=== PATIENT | male | born 1980 | race Caucasian/White ===

== ENCOUNTER 2016-10-23 14:11 | Emergency (ER) | payer MEDICAID ==
[~2016-10-23] VITALS: Ht 182.9 cm; Wt 115.0 kg
[~2016-10-23 14:11] MED LIST: PROT40TA PO; ZOFR4TAB3 SL
[2016-10-23 14:13] VITALS: BP 133/86; PULSE 60; RESP 20; TEMP 98.2; O2SAT 98
[2016-10-23] MEDS ORDERED: PENI500T PO (14:39)
--- NOTE | 2016-10-23 14:40 | PD ---
HPI Chief Complaint: ENT Complaint Time Seen by Provider: 14:36 Travel History International Travel<30 days: No Contact w/Intl Traveler<30days: No Traveled to known affect area: No History of Present Illness HPI 36 showed male presents to the emergency department for evaluation of throat pain for one month. He states it hurts with swallowing and spitting. He denies any fevers or chills. Patient reports a history of chronic back pain, but takes no prescribed medications. He states he has taken [id number] anti-inflammatories as well as magic mouthwash without relief. Patient denies any other symptoms or complaints at this time. PFSH Past Medical History Arthritis: Yes (DJD L HIP??) Asthma: Yes ( CHILD--GREW OUT OF PER PT) Diminished Hearing: No Genitourinary: Yes Headaches: Yes (OCCASSIONAL) Musculoskeletal: Yes (BACK PAIN CHRONIC) Neurologic: Yes Immunizations Current: No Migraines: Yes (OCCASSIONAL) Renal Failure: No Seizures: Yes ( CHILD/NONE SINCE CHILD/TAKES NO MEDS) Past Surgical History Body Medical Devices: PEIRCED L EYEBROW/TONGUE Cardiac Surgery: Yes ( CHILD "WATER ON MY HEART") Ear Surgery: No Endocrine Surgery: No Eye Surgery: No Genitourinary Surgery: No Gynecologic Surgery: No Oral Surgery: No Other Surgery: Yes (BACK SURGERY) Social History Alcohol Use: No Tobacco Use: Yes Substance Use: No Allergies-Medications (Allergen,Severity, Reaction): Coded Allergies: Doxycycline (Verified Allergy, Severe, Anaphylaxis, 05/25/16) Septra (Verified Allergy, Severe, Anaphylaxis, 05/25/16) Reported Meds & Prescriptions Reported Meds & Active Scripts Active Zofran ODT (Ondansetron HCl) 4 Mg Tab 4 Mg SL Q6H PRN FOR NAUSEA/VOMITING Protonix (Pantoprazole Sodium) 40 Mg Tabdr 40 Mg PO DAILY Review of Systems Except as stated in HPI: all other systems reviewed are Neg Physical Exam Narrative GENERAL: Well-developed well-nourished male patient, ambulatory. Afebrile. SKIN: Warm and dry. HEAD: Normocephalic. Atraumatic. ENT: Mucosa pink and moist. No erythema or exudates. No uvular edema. No uvular , palatal, or tonsillar deviation. Airway patent. Nasal turbinates appear normal without nasal blood, purulent drainage or septal hematoma. Bilateral tympanic membranes are clear without erythema or perforation. EYES: No scleral icterus. No injection or drainage. NECK: Supple, trachea midline. No JVD or lymphadenopathy. CARDIOVASCULAR: Regular rate and rhythm without murmurs, gallops, or rubs. RESPIRATORY: Breath sounds equal bilaterally. No accessory muscle use. Lungs sounds clear to auscultation. MUSCULOSKELETAL: No cyanosis, or edema. Data Data Last Documented VS Vital Signs Date Time Temp Pulse Resp B/P Pulse Ox O2 Delivery O2 Flow Rate FiO2 10/23/16 14:13 98.2 60 20 133/86 98 Room Air MDM Medical Decision Making Medical Screen Exam Complete: Yes Emergency Medical Condition: Yes Medical Record Reviewed: Yes Differential Diagnosis Strep pharyngitis versus viral pharyngitis versus URI Narrative Course 36-year-old male presents to the emergency department for evaluation of sore throat for one month. He denies any other associated symptoms. He has not followed up outpatient for this issue. Physical exam is reassuring. I stressed to the patient the need to follow up with an ear, nose, and throat physician or a primary care physician. I'll try the patient a short prescription of antibiotics to see if this relieves his throat pain. However, he is to follow up regardless. He is to return for any acute worsening of symptoms. Diagnosis Primary Impression: Pharyngitis Qualified Code: J02.9 - Pharyngitis, unspecified etiology Referrals: Ear / Nose / Throat Specialist call for appointment Patient Instructions: General Instructions, Pharyngitis (ED) Departure Forms: Tests/Procedures, Work Release Enter return to work date: Oct 24, 2016 Additional Instructions: Take antibiotic as directed until gone. This is free at [facility]. Follow up with an ENT physician. Return to the emergency department for any acute, worsening of symptoms. Med/Other Pt SpecificInfo: Prescription(s) given Scripts Penicillin V Potassium 500 Mg [id number] Mg PO Q8H 10 Days Ref 0 Prov:Alexia Mcqueen 10/23/16 Disposition: 01 DISCHARGE HOME Condition: Stable Alexia Mcqueen Oct 23, 2016 14:40
== END 2016-10-23 14:55 | disposition home or self-care (01) ==
LOC: NEPB 14:11
DX: J02.9 Acute pharyngitis, unspecified (principal); Z72.0 Tobacco use
CPT/HCPCS: 99282

== ENCOUNTER 2017-01-21 15:19 | Emergency (ER) | payer MEDICAID ==
[~2017-01-21] VITALS: Ht 30.5 cm; Wt 127.9 kg
[~2017-01-21 15:19] MED LIST changes: +PENI500T PO
[2017-01-21 15:33] VITALS: BP 131/90; PULSE 72; RESP 16; TEMP 98.4; O2SAT 98
--- NOTE | 2017-01-21 16:05 | PD ---
HPI Chief Complaint: Skin Problem Time Seen by Provider: 16:05 Travel History International Travel<30 days: No Contact w/Intl Traveler<30days: No Traveled to known affect area: No History of Present Illness HPI 36-year-old male presents the ED for evaluation of 2 day history of red, painful area of the right thigh. Patient can identify no acute injury. He denies fever, chills, previous history of abscess or MRSA. He states that he attempted to squeeze the area yesterday and produced a small amount of pus and blood. Denies numbness, tingling, weakness, limitations to range of motion of the lower extremity. Endorses allergies to doxycycline and Septra. PFSH Past Medical History Arthritis: Yes (DJD L HIP??) Asthma: Yes ( CHILD--GREW OUT OF PER PT) Diminished Hearing: No Genitourinary: Yes Headaches: Yes (OCCASSIONAL) Musculoskeletal: Yes (BACK PAIN CHRONIC) Neurologic: Yes Immunizations Current: No Migraines: Yes (OCCASSIONAL) Renal Failure: No Seizures: Yes ( CHILD/NONE SINCE CHILD/TAKES NO MEDS) Influenza Vaccination: No Past Surgical History Body Medical Devices: PEIRCED L EYEBROW/TONGUE Cardiac Surgery: Yes ( CHILD "WATER ON MY HEART") Ear Surgery: No Endocrine Surgery: No Eye Surgery: No Genitourinary Surgery: No Gynecologic Surgery: No Oral Surgery: No Other Surgery: Yes (BACK SURGERY) Social History Alcohol Use: No Tobacco Use: Yes (1 ppd) Substance Use: No Allergies-Medications (Allergen,Severity, Reaction): Coded Allergies: Doxycycline (Verified Allergy, Severe, Anaphylaxis, 01/21/17) Septra (Verified Allergy, Severe, Anaphylaxis, 01/21/17) Reported Meds & Prescriptions Reported Meds & Active Scripts Active Ibuprofen 800 Mg Tab 800 Mg PO Q8H Clindamycin (Clindamycin HCl) 150 Mg Cap 450 Mg PO Q6H 10 Days Review of Systems Except as stated in HPI: all other systems reviewed are Neg Physical Exam Narrative GENERAL: Well-nourished, well-developed white male in no acute distress. SKIN: Focused skin assessment warm/dry. Multiple Tattoos. SKIN: There is an indurated area in the right anterior thigh which measures about 3 cm in diameter. It is fluctuant but there is no pointing or drainage. There is a zone of inflammation around it but no lymphangitis. HEAD: Normocephalic. EYES: No scleral icterus. No injection or drainage. NECK: Supple, trachea midline. No JVD or lymphadenopathy. CARDIOVASCULAR: Regular rate and rhythm without murmurs, gallops, or rubs. RESPIRATORY: Breath sounds equal bilaterally. No accessory muscle use. GASTROINTESTINAL: Abdomen soft, non-tender, nondistended. MUSCULOSKELETAL: No cyanosis, or edema. Patient is ambulatory, walks with normal gait. BACK: Nontender without obvious deformity. No CVA tenderness. Data Data Last Documented VS Vital Signs Date Time Temp Pulse Resp B/P Pulse Ox O2 Delivery O2 Flow Rate FiO2 01/21/17 15:33 98.4 72 16 131/90 98 Orders Abscess Culture And Gram Stain (01/21/17 16:12) Ibuprofen (Motrin) (01/21/17 16:15) Lidocai-Epi 1%-1:100,000 Inj (Xylocaine- (01/21/17 16:15) MDM Medical Decision Making Medical Screen Exam Complete: Yes Emergency Medical Condition: Yes Differential Diagnosis Folliculitis versus abscess versus cellulitis versus other Narrative Course 36-year-old male presents the ED for evaluation of 2 day history of red, painful area of the right thigh. Patient can identify no acute injury. He denies fever, chills, previous history of abscess or MRSA. He states that he attempted to squeeze the area yesterday and produced a small amount of pus and blood. Denies numbness, tingling, weakness, limitations to range of motion of the lower extremity. Vitals reviewed. Patient is afebrile on presentation. Physical exam reveals a nontoxic-appearing white male in no acute distress. There is an indurated area in the right anterior thigh which measures about 3 cm in diameter. It is fluctuant but there is no pointing or drainage. There is a zone of inflammation around it but no lymphangitis. Abscess I&D was performed. Please see my procedure note for details. Patient was prescribed clindamycin 450 4 times a day 10 days. Is also provided a short course of anti -inflammatories. He is instructed to return in 48 hours for removal of packing and reevaluation of the wound. He indicated understanding of the instructions and is agreeable to the care plan. He is stable and discharged home. Procedures Procedure Narrative INCISION AND DRAINAGE OF ABSCESS: The area was prepped and was sterilely draped. A subcutaneous wheal of 1 % Xylocaine with epinephrine with a total number 3 mL was used to anesthetize the area properly. A number 11 scalpel was used to make a 1.25-cm incision across the area of the abscess. The abscess was drained, complex loculations were broken down, and irrigated with normal saline. Cultures were obtained. Quarter inch iodoform packing was placed in the wound. Sterile dressing applied. Patient advised to have packing removed in two days. Diagnosis Primary Impression: Abscess of right thigh Referrals: Primary Care Physician Patient Instructions: Abscess Incision and Drainage (ED), General Instructions Additional Instructions: Rest, hydrate. Do not change the dressing unless it becomes saturated or wet. Take the antibiotics as they are prescribed, even if your symptoms resolve. 800 mg ibuprofen up to 3 times a day to reduce pain and inflammation. Return to the ED in 48 hours for wound recheck and packing removal. Return to the ED for any urgent or emergent medical condition. Med/Other Pt SpecificInfo: Prescription(s) given Scripts Ibuprofen 800 Mg [id number] Mg PO Q8H #15 TAB Ref 0 Prov:Girma Kramer MD 01/21/17 Clindamycin 150 Mg [id number] Mg PO Q6H 10 Days Ref 0 Prov:Girma Kramer MD 01/21/17 Disposition: 01 DISCHARGE HOME Condition: Stable Shelbi Urban Jan 21, 2017 16:05
[2017-01-21] MEDS ORDERED: IBUPROFEN 800 MG TAB PO ONE (16:15)
[2017-01-21] MEDS ORDERED: LIDOCAINE 1%/EPINEPHrine 1:100,000 SOLN 20 ML VIAL INFIL ONE (16:15)
[2017-01-21] MEDS ORDERED: IBUP800T23 PO (16:53)
[2017-01-21] MEDS ORDERED: CLIN1CAP5 PO (16:53)
[2017-01-21] MEDS ORDERED: HYDR-3533 PO (22:29)
== END 2017-01-21 17:23 | disposition home or self-care (01) ==
LOC: PHEFT 15:19
DX: L02.415 Cutaneous abscess of right lower limb (principal); F17.210 Nicotine dependence, cigarettes, uncomplicated; B95.62 Methicillin resistant Staphylococcus aureus infection as the cause of diseases classified elsewhere
CPT/HCPCS: 10061; 86403; 87070; 87186; 87205

== ENCOUNTER 2017-01-21 21:58 | Emergency (ER) | payer MEDICAID ==
[~2017-01-21] VITALS: Ht 182.9 cm; Wt 120.0 kg
[~2017-01-21 21:58] MED LIST changes: +CLIN1CAP5 PO; +IBUP800T23 PO
[2017-01-21 22:00] VITALS: BP 133/92; PULSE 52; RESP 15; TEMP 98.7; O2SAT 100
[2017-01-21] MEDS ORDERED: HYDR-3533 PO (22:29)
[2017-01-21] MEDS ORDERED: ACETAMINOPHEN/HYDROcodone 325 MG/5 MG TAB PO ONE (22:30)
--- NOTE | 2017-01-21 22:38 | PD ---
HPI Chief Complaint: Pain: Acute or Chronic Time Seen by Provider: 22:34 Travel History International Travel<30 days: No Contact w/Intl Traveler<30days: No Traveled to known affect area: No History of Present Illness HPI 36-year-old white male presents to emergency Department with complaints of pain after having an I&D done earlier today at [facility]. The patient states that he was prescribed Motrin which has not been improving his pain. He presents for stronger pain medication. PFSH Past Medical History Arthritis: Yes (DJD L HIP??) Asthma: Yes ( CHILD--GREW OUT OF PER PT) Diminished Hearing: No Genitourinary: Yes Headaches: Yes (OCCASSIONAL) Musculoskeletal: Yes (BACK PAIN CHRONIC) Neurologic: Yes Immunizations Current: No Migraines: Yes (OCCASSIONAL) Renal Failure: No Seizures: Yes ( CHILD/NONE SINCE CHILD/TAKES NO MEDS) Past Surgical History Body Medical Devices: PEIRCED L EYEBROW/TONGUE Cardiac Surgery: Yes ( CHILD "WATER ON MY HEART") Ear Surgery: No Endocrine Surgery: No Eye Surgery: No Genitourinary Surgery: No Gynecologic Surgery: No Oral Surgery: No Other Surgery: Yes (BACK SURGERY) Social History Alcohol Use: No Tobacco Use: Yes (1 ppd) Substance Use: No Allergies-Medications (Allergen,Severity, Reaction): Coded Allergies: Doxycycline (Verified Allergy, Severe, Anaphylaxis, 01/21/17) Septra (Verified Allergy, Severe, Anaphylaxis, 01/21/17) Reported Meds & Prescriptions Reported Meds & Active Scripts Active Lortab (Hydrocodone-Acetaminophen) 5-325 Mg Tab 1 Tab PO Q8HR PRN Ibuprofen 800 Mg Tab 800 Mg PO Q8H Clindamycin (Clindamycin HCl) 150 Mg Cap 450 Mg PO Q6H 10 Days Review of Systems Except as stated in HPI: all other systems reviewed are Neg Physical Exam Narrative GENERAL: This is a well-nourished, well-developed patient, in no apparent distress. SKIN: Patient has a abscess to the right proximal inner thigh. There is packing in place. There is no fluctuance or pointing. No discharge. There is some mild surrounding erythema. Tender to touch. HEAD: Atraumatic. Normocephalic. EYES: PERRL, EOMI, no discharge or injection. No scleral icterus. EARS: Clear NOSE: Nasal turbinates appear normal. THROAT: Mucosa pink and moist. Airway patent. NECK: Trachea midline. supple, moves head freely. LUNGS: Clear to auscultation. CV: Regular in rhythm. ABDOMEN: Soft nontender. EXT: No clubbing cyanosis or edema. Data Data Last Documented VS Vital Signs Date Time Temp Pulse Resp B/P Pulse Ox O2 Delivery O2 Flow Rate FiO2 01/21/17 22:00 98.7 52 15 133/92 100 Room Air Orders Acetamin-Hydrocod 325-5 Mg ([place] 5-325 (01/21/17 22:30) MDM Medical Decision Making Medical Screen Exam Complete: Yes Emergency Medical Condition: Yes Medical Record Reviewed: Yes Differential Diagnosis MDM: High Differential diagnoses: Abscess, folliculitis, cellulitis, lymphangitis, abrasion, contact dermatitis Narrative Course Patient is given one Lortab 5 a grams by mouth. This is right thigh abscess Diagnosis Primary Impression: Abscess of right thigh Patient Instructions: Narcotic given in the ED, General Instructions Additional Instructions: Rest. Elevation. keep clean and dry. remove the packing in two days. Daily wound care with soap, water and Neosporin. Continue your antibiotics. Continue Motrin. Lortab for additional pain. Follow-up with a primary care doctor in one week. Return to the ER for any problems. Med/Other Pt SpecificInfo: Prescription(s) given Scripts Hydrocodone-Acetaminophen (Lortab)5-325 Mg Tab1 Tab PO Q8HR PRN (PAIN) #12 TAB Prov:Kashif Son MD 01/21/17 Disposition: 01 DISCHARGE HOME Condition: Stable Kwame Gracia Jan 21, 2017 22:38
== END 2017-01-21 23:18 | disposition home or self-care (01) ==
LOC: NEPK 21:58
DX: L02.415 Cutaneous abscess of right lower limb (principal)
CPT/HCPCS: 99283

== ENCOUNTER 2017-01-23 10:43 | Emergency (ER) | payer MEDICAID ==
[~2017-01-23] VITALS: Ht 182.9 cm; Wt 120.0 kg
[~2017-01-23 10:43] MED LIST changes: +HYDR-3533 PO; -PENI500T PO; -PROT40TA PO; -ZOFR4TAB3 SL
[2017-01-23 10:44] VITALS: BP 137/86; PULSE 60; RESP 20; TEMP 98.5; O2SAT 99
--- NOTE | 2017-01-23 11:30 | PD ---
Physical Exam Date Seen by Provider: Jan 23, 2017 Time Seen by Provider: 11:28 Narrative 36 year old male presents to the emergency department for re-evaluation of an abscess to his right leg. Patient states he is taking antibiotics but symptoms are worsening. Vital Signs Reviewed. Patient awaiting bed placement. Data Data Last Documented VS Vital Signs Date Time Temp Pulse Resp B/P Pulse Ox O2 Delivery O2 Flow Rate FiO2 01/23/17 10:44 98.5 60 20 137/86 99 Room Air [facility] Supervised Visit with RAVIN: Alexia Funk Jan 23, 2017 11:30
[2017-01-23] MEDS ORDERED: SODIUM CHLOR 0.9% 1000 ML INJ 1,000 ML IV SCH (11:50)
--- NOTE | 2017-01-23 11:58 | PD ---
HPI Chief Complaint: Skin Problem Time Seen by Provider: 11:54 Travel History International Travel<30 days: No Contact w/Intl Traveler<30days: No Traveled to known affect area: No History of Present Illness HPI 36-year-old male presents to the emergency department for evaluation of worsening redness and pain in the right thigh. Patient was seen here 2 days ago for an abscess to the right upper thigh. He had an I&D performed at that time with packing placed and was placed on clindamycin. Patient states that he started taking the clindamycin yesterday morning and has been taking it as prescribed. States that he's had a worsening area of surrounding redness and pain on the right upper medial thigh. States that the size of the redness has tripled over the last 3 days. He denies fever but complains of chills. Complains of nausea but denies vomiting. Denies body aches, discharge or drainage. No other complaints. PFSH Past Medical History Arthritis: Yes (DJD L HIP??) Asthma: Yes ( CHILD--GREW OUT OF PER PT) Diminished Hearing: No Genitourinary: Yes Headaches: Yes (OCCASSIONAL) Neurologic: Yes Immunizations Current: No Migraines: Yes (OCCASSIONAL) Renal Failure: No Seizures: Yes ( CHILD/NONE SINCE CHILD/TAKES NO MEDS) Past Surgical History Body Medical Devices: PEIRCED L EYEBROW/TONGUE Cardiac Surgery: Yes ( CHILD "WATER ON MY HEART") Ear Surgery: No Endocrine Surgery: No Eye Surgery: No Genitourinary Surgery: No Gynecologic Surgery: No Oral Surgery: No Other Surgery: Yes (BACK SURGERY) Social History Alcohol Use: No Tobacco Use: Yes (1 ppd) Substance Use: No Allergies-Medications (Allergen,Severity, Reaction): Coded Allergies: Doxycycline (Verified Allergy, Severe, Anaphylaxis, 01/23/17) Septra (Verified Allergy, Severe, Anaphylaxis, 01/23/17) Reported Meds & Prescriptions Reported Meds & Active Scripts Active Lortab (Hydrocodone-Acetaminophen) 5-325 Mg Tab 1 Tab PO Q8HR PRN Ibuprofen 800 Mg Tab 800 Mg PO Q8H Clindamycin (Clindamycin HCl) 150 Mg Cap 450 Mg PO Q6H 10 Days Review of Systems Except as stated in HPI: all other systems reviewed are Neg Physical Exam Narrative GENERAL: Well-nourished and well-developed pleasant patient in moderate amount of pain but no acute distress. SKIN: Warm and dry. Right upper anterior thigh with open incision and packing in place with large surrounding area of erythema, warmth and tenderness approximately 13 cm in diameter. No area of induration or fluctuance. No lymphangitis. HEAD: Normocephalic and atraumatic. EYES: No injection, drainage, or hyphema noted. PERRLA. EOMI. ENT: No nasal drainage noted. Oropharynx is clear. NECK: Supple and the trachea is midline. CARDIOVASCULAR: Regular rate and rhythm. RESPIRATORY: Breath sounds are equal bilaterally with no accessory muscle use, wheezing, rhonchi, or crackles. GASTROINTESTINAL: Abdomen is soft, non-tender, and nondistended. MUSCULOSKELETAL: No obvious deformities, swelling, cyanosis, or ecchymosis is present throughout the upper and lower extremities. Patient has full range of motion without any signs of neurovascular compromise. NEUROLOGICAL: Awake, alert, and oriented. Normal speech and gait. Cranial nerves are grossly intact. Data Data Last Documented VS Vital Signs Date Time Temp Pulse Resp B/P Pulse Ox O2 Delivery O2 Flow Rate FiO2 01/23/17 11:41 61 20 01/23/17 10:44 98.5 137/86 99 Room Air Orders Complete Blood Count With Diff (01/23/17 11:50) Comprehensive Metabolic Panel (01/23/17 11:50) Lactic Acid Sepsis Protocol (01/23/17 11:50) Ecg Monitoring (01/23/17 11:50) Iv Access Insert/Monitor (01/23/17 11:50) Oximetry (01/23/17 11:50) Morphine Inj (Morphine Inj) (01/23/17 12:00) Ondansetron Inj (Zofran Inj) (01/23/17 12:00) Sodium Chlor 0.9% 1000 Ml Inj (Ns 1000 M (01/23/17 11:50) Sodium Chloride 0.9% Flush (Ns Flush) (01/23/17 12:00) Westergren Sedimentation Rate (01/23/17 11:50) C-Reactive Protein (Crp) (01/23/17 11:50) Clindamycin Inj (Cleocin Inj) (01/23/17 12:00) Ketorolac Inj (Toradol Inj) (01/23/17 13:00) Labs Laboratory Tests Test 01/23/17 11:55 White Blood Count 7.3 TH/MM3 Red Blood Count 5.13 MIL/MM3 Hemoglobin 15.8 GM/DL Hematocrit 45.5 % Mean Corpuscular Volume 88.8 FL Mean Corpuscular Hemoglobin 30.8 PG Mean Corpuscular Hemoglobin 34.6 % Concent Red Cell Distribution Width 13.3 % Platelet Count 258 TH/MM3 Mean Platelet Volume 9.1 FL Neutrophils (%) (Auto) 68.7 % Lymphocytes (%) (Auto) 18.8 % Monocytes (%) (Auto) 8.4 % Eosinophils (%) (Auto) 3.0 % Basophils (%) (Auto) 1.1 % Neutrophils # (Auto) 5.0 TH/MM3 Lymphocytes # (Auto) 1.4 TH/MM3 Monocytes # (Auto) 0.6 TH/MM3 Eosinophils # (Auto) 0.2 TH/MM3 Basophils # (Auto) 0.1 TH/MM3 CBC Comment DIFF FINAL Differential Comment Erythrocyte Sedimentation Rate 7 mm/hr Sodium Level 139 MEQ/L Potassium Level 4.3 MEQ/L Chloride Level 107 MEQ/L Carbon Dioxide Level 27.1 MEQ/L Anion Gap 5 MEQ/L Blood Urea Nitrogen 9 MG/DL Creatinine 0.91 MG/DL Estimat Glomerular Filtration 94 ML/MIN Rate Random Glucose 92 MG/DL Lactic Acid Level 1.4 mmol/L Calcium Level 8.5 MG/DL Total Bilirubin 0.6 MG/DL Aspartate Amino Transf 17 U/L (AST/SGOT) Alanine Aminotransferase 35 U/L (ALT/SGPT) Alkaline Phosphatase 76 U/L C-Reactive Protein 1.50 MG/DL Total Protein 7.0 GM/DL Albumin 3.5 GM/DL [facility] Medical Decision Making Medical Screen Exam Complete: Yes Emergency Medical Condition: Yes Differential Diagnosis Cellulitis versus abscess versus failed outpatient therapy versus sepsis Narrative Course 36-year-old male presents to the emergency department for evaluation of worsening right thigh redness and pain. Patient is afebrile, vital signs are stable. He had an I&D of an abscess performed 2 days ago and has been taking antibiotics since yesterday morning. His symptoms have continued to worsen despite antibiotic therapy. I did look at the EMR which shows his wound culture was positive for MRSA and that it is susceptible to clindamycin. IV access is obtained, labs drawn and sent. Patient is placed on cardiac telemetry and pulse oximetry monitoring. Patient is administered morphine 4 mg IV, Zofran 4 mg IV, IV fluids and clindamycin 600 mg IV. CBC is unremarkable. Sedimentation rate is within normal limits. CMP is unremarkable. CRP is slightly elevated at 1.5. Lactic acid is within normal limits at 1.4. Patient has remained stable and without complaint while here in the emergency department. The patient's labs are reassuring and his wound culture shows susceptible to clindamycin. He is only been on the antibiotic for one full day. I think it would be appropriate for the patient to continue to take antibiotics as an outpatient at this time and return for worsening of symptoms. I did use skin marker to outline the area of redness and he is given strict instructions to return if the redness extends outside of this line. I discussed all this with the patient was comfortable with this plan. I discussed the case with my attending physician Dr. Kramer who is aware of the patients history, physical examination findings, and treatment plan. Diagnosis Primary Impression: Cellulitis of right thigh Additional Impression: Abscess of right thigh Referrals: Primary Care Physician Patient Instructions: Abscess (ED), Cellulitis (ED), General Instructions Additional Instructions: Continue taking antibiotics as prescribed. Do not take Lortab with alcohol or while driving. Follow-up with your Primary Care Physician. Return to the ED for any acute worsening of symptoms such as worsening redness outside the skin markers, fever, worsening pain. Med/Other Pt SpecificInfo: Prescription(s) given Scripts Hydrocodone-Acetaminophen (Lortab)5-325 Mg Tab1 Tab PO Q6H PRN (PAIN GREATER THAN 6) #12 TAB Ref 0 Prov:Girma Kramer MD 01/23/17 Disposition: 01 DISCHARGE HOME Condition: Stable Hannah Dawn Jan 23, 2017 11:58
[2017-01-23] MEDS ORDERED: SODIUM CHLORIDE 0.9% FLUSH 10 ML FLUSH IV FLUSH PRN (12:00)
[2017-01-23] MEDS ORDERED: CLINDAMYCIN INJ 600 MG in SODIUM CHLORIDE 0.9% INJ 100 ML IV ONE (12:00)
[2017-01-23] MEDS ORDERED: ONDANSETRON HCL 4 MG/2 ML VIAL IVP ONE (12:00)
[2017-01-23] MEDS ORDERED: MORPHINE SULFATE 4 MG/ML INJ IV PUSH ONE (12:00)
[2017-01-23 12:09] LABS: BASOPHIL # 0.1 TH/MM3 (0-0.2); BASOPHIL % 1.1 % (0.0-2.0); EOSINOPHIL # 0.2 TH/MM3 (0-0.4); HEMATOCRIT 45.5 % (39.0-51.0); HEMO FLAGS DIFF FINAL; LYMPH % 18.8 % (9.0-44.0); LYMPHOCYTE # 1.4 TH/MM3 (1.0-4.8); MEAN CELL VOLUME 88.8 FL (80.0-100.0); MEAN CORPUSCULAR HEMOGLOBIN 30.8 PG (27.0-34.0); MEAN CORPUSCULAR HGB CONC 34.6 % (32.0-36.0); MONO % 8.4 % (0.0-8.0); NEUT % 68.7 % (16.0-70.0); PLATELET COUNT 258 TH/MM3 (150-450); RED BLOOD COUNT 5.13 MIL/MM3 (4.50-5.90); RED CELL DISTRIBUTION WIDTH 13.3 % (11.6-17.2); WHITE BLOOD COUNT 7.3 TH/MM3 (4.0-11.0)
[2017-01-23 12:31] LABS: ANION GAP 5 MEQ/L (5-15); AST (GOT) 17 U/L (15-37); BICARBONATE 27.1 MEQ/L (21.0-32.0); BLOOD UREA NITROGEN 9 MG/DL (7-18); CHLORIDE 107 MEQ/L (98-107); GLOMERULAR FILTRATION RATE 94 ML/MIN (>89); POTASSIUM 4.3 MEQ/L (3.5-5.1); SODIUM (NA) 139 MEQ/L (136-145)
[2017-01-23 12:35] LABS: ALKALINE PHOSPHATASE 76 U/L (45-117); ALT (GPT) 35 U/L (12-78); TOTAL BILIRUBIN ADULT 0.6 MG/DL (0.2-1.0)
[2017-01-23] MEDS ORDERED: HYDR-3533 PO (12:52)
[2017-01-23] MEDS ORDERED: KETOROLAC TROMETHAMINE 30 MG/ML (IVP) VIAL IV PUSH ONE (13:00)
[2017-01-23 13:07] VITALS: O2SAT 96
[2017-01-23 14:01] VITALS: RESP 18
== END 2017-01-23 14:03 | disposition home or self-care (01) ==
LOC: NEPE 10:43
DX: L03.115 Cellulitis of right lower limb (principal); L02.415 Cutaneous abscess of right lower limb; R11.0 Nausea; F17.210 Nicotine dependence, cigarettes, uncomplicated
CPT/HCPCS: 80053; 83605; 85025; 85652; 86140; 96365; 96375; 99284; J1885; J2270; J2405; J7030

== ENCOUNTER 2017-04-21 19:55 | Emergency (ER) | payer MEDICAID ==
[2017-04-21 20:05] VITALS: BP 154/107; PULSE 53; RESP 20; TEMP 98.7; O2SAT 100
[2017-04-21] MEDS ORDERED: LIDOCAINE HCL 1% PF 30 ML VIAL INFIL ONE (20:30)
--- NOTE | 2017-04-21 20:54 | PD ---
HPI Chief Complaint: Skin Problem Time Seen by Provider: 20:20 Travel History International Travel<30 days: No Contact w/Intl Traveler<30days: No Traveled to known affect area: No History of Present Illness HPI 37-year-old male presents to the emergency room for evaluation of a foreign body to his left fourth finger that occurred earlier today. Patient was cutting a large palm tree when a branch started falling towards his face. He put up his hand to protect his face 2 spikes stuck into his hand. He was able to remove 1 but the finger foreign body was too deep. He tried to go on about his day but the other foreign body in his left fourth finger was too painful. Unknown last tetanus. No chronic medical conditions or daily medications. PFSH Past Medical History Arthritis: Yes (DJD L HIP??) Asthma: Yes ( CHILD--GREW OUT OF PER PT) Diminished Hearing: No Genitourinary: Yes Headaches: Yes (OCCASSIONAL) Neurologic: Yes Immunizations Current: No Migraines: Yes (OCCASSIONAL) Renal Failure: No Seizures: Yes ( CHILD/NONE SINCE CHILD/TAKES NO MEDS) Past Surgical History Body Medical Devices: PEIRCED L EYEBROW/TONGUE Cardiac Surgery: Yes ( CHILD "WATER ON MY HEART") Ear Surgery: No Endocrine Surgery: No Eye Surgery: No Genitourinary Surgery: No Gynecologic Surgery: No Oral Surgery: No Other Surgery: Yes (BACK SURGERY) Social History Alcohol Use: No Tobacco Use: Yes (1 ppd) Substance Use: No Allergies-Medications (Allergen,Severity, Reaction): Coded Allergies: Doxycycline (Verified Allergy, Severe, Anaphylaxis, 04/21/17) Septra (Verified Allergy, Severe, Anaphylaxis, 04/21/17) *MDRO Multi-Drug Resistant Organism (Verified Adverse Reaction, Unknown, ) MRSA (thigh)-01/21/17 Reported Meds & Prescriptions Reported Meds & Active Scripts Active No Active Prescriptions or Reported Medications Review of Systems Except as stated in HPI: all other systems reviewed are Neg Physical Exam Narrative GENERAL: Well-nourished, well-developed male in no acute distress. Afebrile. Ambulatory. SKIN: Focused skin assessment warm/dry. There is a puncture wound at the tip of the left fourth finger with a black foreign body. HEAD: Normocephalic. EYES: No scleral icterus. No injection or drainage. NECK: Supple, trachea midline. No JVD or lymphadenopathy. CARDIOVASCULAR: Regular rate and rhythm without murmurs, gallops, or rubs. RESPIRATORY: Breath sounds equal bilaterally. No accessory muscle use. PSYCHIATRIC: No delusional thought processes. No hallucinations. Data Data Last Documented VS Vital Signs Date Time Temp Pulse Resp B/P Pulse Ox O2 Delivery O2 Flow Rate FiO2 04/21/17 20:05 98.7 53 20 154/107 100 Orders Lidocaine Pf 1% Inj (Xylocaine-Mpf 1% In (04/21/17 20:30) MDM Medical Decision Making Medical Screen Exam Complete: Yes Emergency Medical Condition: Yes Medical Record Reviewed: Yes Differential Diagnosis Soft tissue foreign body, abrasion, laceration, contusion Narrative Course 37-year-old male presents to the emergency room for evaluation of foreign body to the left fourth finger that occurred earlier today. Patient was trying to "tough it out" but states it is too painful. Physical exam reveals a puncture wound to the tip of the left fourth finger with a black body. A 1 cm foreign body was removed without difficulty. Patient discharged with wound care instructions and told to follow up with a primary care physician or return for worsening symptoms. Procedures Procedure Narrative Foreign body removal: The area was prepped with Betadine. A subcutaneous wheal of 1% lidocaine with a total number 2 mL was used to anesthetize the area properly. A number 11 scalpel was used to make a 0.5 cm incision across the foreign body. Foreign body was removed with forceps without difficulty. Sterile dressing applied. Diagnosis Primary Impression: Soft tissues foreign body Referrals: Primary Care Physician Patient Instructions: General Instructions, Soft Tissue Foreign Body (ED) Additional Instructions: Rest and drink plenty of fluids. Keep wound clean and dry. Apply triple antibiotic ointment daily. Take ibuprofen with food as directed, as needed for pain. Follow-up with a primary care physician. Return to the emergency room for worsening symptoms. Med/Other Pt SpecificInfo: Prescription(s) given Scripts No Active Prescriptions or Reported Meds Disposition: 01 DISCHARGE HOME Condition: Stable Citlali Mueller Apr 21, 2017 20:54
== END 2017-04-21 21:00 | disposition home or self-care (01) ==
LOC: PHEFT 19:55
DX: S61.245A Puncture wound with foreign body of left ring finger without damage to nail, initial encounter (principal); F17.210 Nicotine dependence, cigarettes, uncomplicated; W20.8XXA Other cause of strike by thrown, projected or falling object, initial encounter; Y93.H2 Activity, gardening and landscaping
CPT/HCPCS: 10120

== ENCOUNTER 2017-09-22 21:12 | Emergency (ER) | payer MEDICAID ==
[~2017-09-22] VITALS: Ht 182.9 cm; Wt 121.8 kg
[2017-09-22 21:17] VITALS: BP 152/94; PULSE 55; RESP 20; TEMP 97.9; O2SAT 99
[2017-09-22] MEDS ORDERED: KETOROLAC TROMETHAMINE 60 MG/2 ML (IM) VIAL IM ONE (21:30)
[2017-09-22 21:42] LABS: BLOOD, URINE NEG (NEG); GLUCOSE,URINE NEG (NEG); KETONE, URINE NEG (NEG); NITRITE,URINE NEG (NEG)
[2017-09-22 21:49] LABS: URINE COLOR YELLOW (YELLW/STRAW)
[2017-09-22 21:50] LABS: COMMENT (UR) CULT NOT INDICATED; CULTURE IF INDICATED CULT NOT INDICATED; SQUAMOUS EPITHELIAL CELL URINE 0-5 /hpf (0-5); WBC, URINE 0-2 /hpf (0-5)
--- NOTE | 2017-09-22 21:53 | PD ---
HPI Chief Complaint: Complaint Time Seen by Provider: 21:25 Travel History International Travel<30 days: No Contact w/Intl Traveler<30days: No Traveled to known affect area: No History of Present Illness HPI 37-year-old male with history of left scrotal injury as a child needing stitches presents the emergency department for evaluation of left testicular pain for the past few days. Patient states she is also feeling the urge to urinate. States he Also started turning red and swollen. Endorse some mild abdominal cramping but no nausea no vomiting no diarrhea. He states that his girlfriend had been diagnosed with VRE and doesn't know if this has something to do with it. Denies any history of discharge. States the symptoms a never happened to him before. States the pain is moderate, left testicle, no radiation, associated signs symptoms as above, context as above. PFSH Past Medical History Arthritis: Yes (DJD L HIP??) Asthma: Yes ( CHILD--GREW OUT OF PER PT) Autoimmune Disease: No Diminished Hearing: No Genitourinary: Yes Headaches: Yes (OCCASSIONAL) Neurologic: Yes Immunizations Current: No Migraines: Yes (OCCASSIONAL) Renal Failure: No Seizures: Yes ( CHILD/NONE SINCE CHILD/TAKES NO MEDS) Tetanus Vaccination: > 5 Years Influenza Vaccination: No Past Surgical History Body Medical Devices: PEIRCED L EYEBROW/TONGUE Cardiac Surgery: Yes ( CHILD "WATER ON MY HEART") Ear Surgery: No Endocrine Surgery: No Eye Surgery: No Genitourinary Surgery: No Gynecologic Surgery: No Oral Surgery: No Thoracic Surgery: No Other Surgery: Yes (BACK SURGERY) Social History Alcohol Use: No Tobacco Use: Yes (1 ppd) Substance Use: No Allergies-Medications (Allergen,Severity, Reaction): Coded Allergies: doxycycline (Unverified Allergy, Severe, Anaphylaxis, 09/22/17) sulfamethoxazole (Unverified Allergy, Severe, Anaphylaxis, 09/22/17) trimethoprim (Unverified Allergy, Severe, Anaphylaxis, 09/22/17) *MDRO Multi-Drug Resistant Organism (Verified Adverse Reaction, Unknown, 09/22/17) MRSA (thigh)-01/21/17 Reported Meds & Prescriptions Reported Meds & Active Scripts Active Ultram (Tramadol HCl) 50 Mg Tab 50 Mg PO Q6H PRN Levaquin (Levofloxacin) 750 Mg Tablet 750 Mg PO DAILY 14 Days Review of Systems Except as stated in HPI: all other systems reviewed are Neg Physical Exam Narrative GENERAL: Well-developed well-nourished, no obvious distress. SKIN: Focused skin assessment warm/dry. HEAD: Atraumatic. Normocephalic. EYES: Pupils equal and round. No scleral icterus. No injection or drainage. ENT: No nasal bleeding or discharge. Mucous membranes pink and moist. NECK: Trachea midline. No JVD. CARDIOVASCULAR: Regular rate and rhythm. No murmur appreciated. RESPIRATORY: No accessory muscle use. Clear to auscultation. Breath sounds equal bilaterally. GASTROINTESTINAL: Abdomen soft, non-tender, nondistended. Hepatic and splenic margins not palpable. GENITOURINARY: Grossly normal scrotum skin, testicles are normal in size, minimal tenderness in the superior aspect of the left testicle probably consistent with epididymitis, uncircumcised penis without discharge. No hernia. No abscess no cellulitis. MUSCULOSKELETAL: No obvious deformities. No clubbing. No cyanosis. No edema. NEUROLOGICAL: Awake and alert. No obvious cranial nerve deficits. Motor grossly within normal limits. Normal speech. PSYCHIATRIC: Appropriate mood and affect; insight and judgment normal. Data Data Last Documented VS Vital Signs Date Time Temp Pulse Resp B/P (MAP) Pulse Ox O2 Delivery O2 Flow Rate FiO2 09/22/17 22:51 88 18 140/74 (96) 99 09/22/17 21:17 97.9 Orders Orders Urinalysis - C+S If Indicated (09/22/17 21:26) Gc And Chlamydia Pcr (09/22/17 21:26) Us Testicles W Doppler (09/22/17 ) Ketorolac Inj (Toradol Inj) (09/22/17 21:30) Ceftriaxone Inj (Rocephin Inj) (09/22/17 22:30) Azithromycin (Zithromax) (09/22/17 22:30) Ed Discharge Order (09/22/17 22:30) Labs Laboratory Tests Test 09/22/17 21:33 Urine Color YELLOW Urine Turbidity CLEAR Urine pH 6.0 Urine Specific [place] 1.017 Urine Protein NEG mg/dL Urine Glucose (UA) NEG mg/dL Urine Ketones NEG mg/dL Urine Occult Blood NEG Urine Nitrite NEG Urine Bilirubin NEG Urine Leukocyte Esterase NEG Urine WBC 0-2 /hpf Urine Squamous Epithelial Cells 0-5 /hpf Microscopic Urinalysis Comment CULT NOT INDICATED MDM Medical Decision Making Medical Screen Exam Complete: Yes Emergency Medical Condition: Yes Differential Diagnosis epididymitis, orchitis, torsion unlikely, varicocele, hernia unlikely. Narrative Course Patient roomed emergency department, UA and ultrasound are reassuring, given the location of his tenderness in the epididymis we'll cover for epididymitis, Rocephin and azithromycin were given in the ER and will prescribe prescription for Levaquin. Still somewhat uncomfortable after Toradol the patient is planning on driving home, offered prescription for Ultram and he is accepting. Discussed return to ED criteria follow-up with a primary care physician or the [facility]. He is stable for discharge. Diagnosis Primary Impression: Testicular pain, left Med/Other Pt SpecificInfo: Prescription(s) given Scripts Tramadol (Ultram) 50 Mg Tab 50 MG PO Q6H Y for PAIN, #10 TAB 0 Refills Prov: Nestor Linares MD 09/22/17 Levofloxacin (Levaquin) 750 Mg Tablet 750 MG PO DAILY for Infection for 14 Days, #14 TAB 0 Refills Prov: Nestor Linares MD 09/22/17 Disposition: 01 DISCHARGE HOME Condition: Stable Nestor Linares MD Sep 22, 2017 21:53
--- NOTE | 2017-09-22 22:26 | RADRPT ---
EXAM DATE/TIME: 09/22/2017 21:34 [facility] COMPARISON: No previous studies available for comparison. INDICATIONS : Left testicular pain. MEDICAL HISTORY : Arthritis. Seizures. Migraines. Numbness LLE. Asthma. MRSA. SURGICAL HISTORY : Cardiac surgery. Back surgery. ENCOUNTER: Initial ACUITY: 2 days PAIN SCORE: 10/10 LOCATION: Bilateral scrotum. MEASUREMENTS: RIGHT TESTICLE: 2.8 x 3.7 x 2.2cm LEFT TESTICLE: 2.5 x 3.5 x 2.1cm FINDINGS: Positive testicular blood flow bilaterally. No testicular mass. Mild left varicocele. No hydrocele. N o epididymal. CONCLUSION: 1. Positive testicular blood flow without mass. No acute findings. Mild to moderate left-sided varico yesenia. Kwame Spain MD on September 22, 2017 at 22:21 Board Certified Radiologist. This report was verified electronically.
[2017-09-22] MEDS ORDERED: cefTRIAXone 250 MG VIAL IM ONE (22:30)
[2017-09-22] MEDS ORDERED: AZITHROMYCIN 250 MG TAB PO ONE (22:30)
[2017-09-22] MEDS ORDERED: TRAM50 PO (22:32)
[2017-09-22] MEDS ORDERED: LEVA750T9 PO (22:32)
[2017-09-22 22:51] VITALS: BP 140/74
[2017-09-23 01:40] LABS: CHLAMYDIA PCR NOT DETECTED (NOT DETECT); NEISSERIA PCR NOT DETECTED (NOT DETECT)
== END 2017-09-22 22:53 | disposition home or self-care (01) ==
LOC: PHED 21:12
DX: N50.812 Left testicular pain (principal); F17.200 Nicotine dependence, unspecified, uncomplicated
CPT/HCPCS: 76870; 81001; 87491; 87591; 93975; 96372; 99284; J0696; J1885

== ENCOUNTER 2017-11-03 19:17 | Emergency (ER) | payer MEDICAID ==
[~2017-11-03] VITALS: Ht 182.9 cm; Wt 118.3 kg
[~2017-11-03 19:17] MED LIST changes: -CLIN1CAP5 PO; -HYDR-3533 PO; -IBUP800T23 PO; +LEVA750T9 PO; +TRAM50 PO
[2017-11-03 19:38] VITALS: BP 122/77; PULSE 64; RESP 20; TEMP 97.9; O2SAT 99
[2017-11-03] MEDS ORDERED: SODIUM CHLORIDE 0.9% FLUSH 10 ML FLUSH IV FLUSH PRN (21:15)
--- NOTE | 2017-11-03 21:21 | PD ---
HPI . Epigastric pain Chief Complaint: Flank/Kidney Pain Time Seen by Provider: 21:00 Travel History International Travel<30 days: No Contact w/Intl Traveler<30days: No Traveled to known affect area: No History of Present Illness HPI This patient presents with a chief complaint of epigastric pain that radiates around his left abdomen and into his back. Onset was this morning. He describes the pain as sharp. He rates it 5/10. It is exacerbated by eating and is somewhat relieved by Tylenol and Advil. It is associated with nausea but no vomiting or diarrhea. No constipation. He reports chronic hesitancy of urination because of complications of back surgery. He states that this is getting progressively worse but did not become acutely worse today. PFSH Past Medical History Arthritis: Yes (DJD L HIP??) Asthma: Yes ( CHILD--GREW OUT OF PER PT) Autoimmune Disease: No Diminished Hearing: No Genitourinary: Yes Headaches: Yes (OCCASSIONAL) Neurologic: Yes Immunizations Current: No Migraines: Yes (OCCASSIONAL) Renal Failure: No Seizures: Yes ( CHILD/NONE SINCE CHILD/TAKES NO MEDS) Past Surgical History Body Medical Devices: PEIRCED L EYEBROW/TONGUE Cardiac Surgery: Yes ( CHILD "WATER ON MY HEART") Ear Surgery: No Endocrine Surgery: No Eye Surgery: No Genitourinary Surgery: No Gynecologic Surgery: No Oral Surgery: No Thoracic Surgery: No Other Surgery: Yes (BACK SURGERY) Social History Alcohol Use: No Tobacco Use: Yes (1 ppd) Substance Use: No Allergies-Medications (Allergen,Severity, Reaction): Coded Allergies: doxycycline (Unverified Allergy, Severe, Anaphylaxis, 09/22/17) sulfamethoxazole (Unverified Allergy, Severe, Anaphylaxis, 09/22/17) trimethoprim (Unverified Allergy, Severe, Anaphylaxis, 09/22/17) *MDRO Multi-Drug Resistant Organism (Verified Adverse Reaction, Unknown, 09/22/17) MRSA (thigh)-01/21/17 Reported Meds & Prescriptions Reported Meds & Active Scripts Active Ultram (Tramadol HCl) 50 Mg Tab 50 Mg PO Q6H PRN Levaquin (Levofloxacin) 750 Mg Tablet 750 Mg PO DAILY 14 Days Review of Systems Except as stated in HPI: all other systems reviewed are Neg General / Constitutional: No: Fever, Chills Gastrointestinal: Positive: Nausea, Abdominal Pain, Loss of Appetite, No: Vomiting, Diarrhea, Constipation Genitourinary: Positive: Hesitancy, No: Urgency, Frequency, Dysuria, Hematuria Physical Exam Narrative GENERAL: Awake and alert. SKIN: warm/dry. Normal color and turgor. HEAD: Normocephalic. Atraumatic. EYES: Pupils equal and round. No scleral icterus. No injection or drainage. ENT: No nasal bleeding or discharge. Mucous membranes pink and moist. NECK: Trachea midline. Full range of motion without pain.. CARDIOVASCULAR: Regular rate and rhythm. Heart sounds normal. RESPIRATORY: No accessory muscle use. Clear to auscultation. Breath sounds equal bilaterally. GASTROINTESTINAL: Abdomen soft. Mild epigastric tenderness without guarding or rebound. Bowel sounds present. Nondistended. : No CVA tenderness. MUSCULOSKELETAL: No obvious deformities. NEUROLOGICAL: Awake and alert. No obvious cranial nerve deficits. Motor grossly within normal limits. Normal speech. PSYCHIATRIC: Appropriate mood and affect; insight and judgment normal. Data Data Last Documented VS Vital Signs Date Time Temp Pulse Resp B/P (MAP) Pulse Ox O2 Delivery O2 Flow Rate FiO2 11/03/17 19:38 97.9 64 20 122/77 (92) 99 Orders Orders Complete Blood Count With Diff (11/03/17 21:05) Comprehensive Metabolic Panel (11/03/17 21:05) Lipase (11/03/17 21:05) Urinalysis - C+S If Indicated (11/03/17 21:05) Abdomen, Flat & Upright (11/03/17 ) Iv Access Insert/Monitor (11/03/17 21:05) Sodium Chloride 0.9% Flush (Ns Flush) (11/03/17 21:15) Simethicone Chew (Phazyme Chew) (11/03/17 22:15) Labs Laboratory Tests Test 11/03/17 19:26 11/03/17 21:15 Urine Color YELLOW Urine Turbidity CLEAR Urine pH 6.0 Urine Specific [place] GREATER THAN 1.035 Urine Protein NEG mg/dL Urine Glucose (UA) NEG mg/dL Urine Ketones NEG mg/dL Urine Occult Blood NEG Urine Nitrite NEG Urine Bilirubin NEG Urine Leukocyte Esterase NEG Urine WBC 0-2 /hpf Urine Squamous Epithelial Cells 0-5 /hpf Microscopic Urinalysis Comment CULT NOT INDICATED White Blood Count 8.6 TH/MM3 Red Blood Count 5.13 MIL/MM3 Hemoglobin 15.0 GM/DL Hematocrit 46.3 % Mean Corpuscular Volume 90.3 FL Mean Corpuscular Hemoglobin 29.3 PG Mean Corpuscular Hemoglobin Concent 32.4 % Red Cell Distribution Width 12.5 % Platelet Count 243 TH/MM3 Mean Platelet Volume 9.0 FL Neutrophils (%) (Auto) 48.0 % Lymphocytes (%) (Auto) 39.3 % Monocytes (%) (Auto) 8.1 % Eosinophils (%) (Auto) 3.6 % Basophils (%) (Auto) 1.0 % Neutrophils # (Auto) 4.1 TH/MM3 Lymphocytes # (Auto) 3.4 TH/MM3 Monocytes # (Auto) 0.7 TH/MM3 Eosinophils # (Auto) 0.3 TH/MM3 Basophils # (Auto) 0.1 TH/MM3 CBC Comment DIFF FINAL Differential Comment Blood Urea Nitrogen 9 MG/DL Creatinine 0.79 MG/DL Random Glucose 88 MG/DL Total Protein 7.3 GM/DL Albumin 3.6 GM/DL Calcium Level 8.5 MG/DL Alkaline Phosphatase 79 U/L Aspartate Amino Transf (AST/SGOT) 22 U/L Alanine Aminotransferase (ALT/SGPT) 33 U/L Total Bilirubin 0.5 MG/DL Sodium Level 136 MEQ/L Potassium Level 3.9 MEQ/L Chloride Level 103 MEQ/L Carbon Dioxide Level 28.2 MEQ/L Anion Gap 5 MEQ/L Estimat Glomerular Filtration Rate 110 ML/MIN Lipase 59 U/L MDM Medical Decision Making Medical Screen Exam Complete: Yes Emergency Medical Condition: Yes Medical Record Reviewed: Yes (this patient has been here numerous times. His usual complaints or skin related or musculoskeletal related.) Differential Diagnosis Differential diagnosis of abdominal pain includes but is not limited to gastritis, pancreatitis, hepatitis, gastroenteritis, gallbladder disease, constipation, urinary retention, UTI, peptic ulcer disease, diverticulitis or appendicitis Narrative Course This patient presents with epigastric pain which radiates around her left upper abdomen and into the back. His examination is relatively benign. Mild tenderness without guarding or rebound. CBC & BMP Diagram 11/03/17 21:15 Total Protein 7.3, Albumin 3.6, Calcium Level 8.5, Alkaline Phosphatase 79, Aspartate Amino Transf (AST/SGOT) 22, Alanine Aminotransferase (ALT/SGPT) 33, Total Bilirubin 0.5 UA negative Abdominal x-ray to my interpretation shows that he is full of gas. Diagnosis Primary Impression: Epigastric pain Patient Instructions: Abdominal Pain (ED), General Instructions Additional Instructions: See your primary care doctor if symptoms continue Med/Other Pt SpecificInfo: Prescription(s) given Scripts Dicyclomine (Bentyl) 10 Mg Cap 20 MG PO QID for Bowel Management, #10 CAP 0 Refills Prov: Shameka Mccoy MD 11/03/17 Disposition: 01 DISCHARGE HOME Condition: Stable Shameka Mccoy MD Nov 03, 2017 21:21
[2017-11-03 21:32] LABS: AUTOMATED NEUTROPHIL # 4.1 TH/MM3 (1.8-7.7); BASOPHIL # 0.1 TH/MM3 (0-0.2); EOSINOPHIL # 0.3 TH/MM3 (0-0.4); EOSINOPHIL % 3.6 % (0.0-4.0); HEMATOCRIT 46.3 % (39.0-51.0); LYMPH % 39.3 % (9.0-44.0); LYMPHOCYTE # 3.4 TH/MM3 (1.0-4.8); MEAN CELL VOLUME 90.3 FL (80.0-100.0); MEAN CORPUSCULAR HEMOGLOBIN 29.3 PG (27.0-34.0); MEAN CORPUSCULAR HGB CONC 32.4 % (32.0-36.0); MONO % 8.1 % (0.0-8.0); MONOCYTE # 0.7 TH/MM3 (0-0.9); PLATELET COUNT 243 TH/MM3 (150-450); RED BLOOD COUNT 5.13 MIL/MM3 (4.50-5.90); RED CELL DISTRIBUTION WIDTH 12.5 % (11.6-17.2); WHITE BLOOD COUNT 8.6 TH/MM3 (4.0-11.0)
[2017-11-03 21:34] LABS: BILIRUBIN, URINE NEG (NEG); BLOOD, URINE NEG (NEG); GLUCOSE,URINE NEG (NEG); KETONE, URINE NEG (NEG); NITRITE,URINE NEG (NEG); URINE LEUKOCYTE ESTERASE NEG (NEG)
[2017-11-03 21:40] LABS: URINE COLOR YELLOW (YELLW/STRAW)
[2017-11-03 21:41] LABS: SQUAMOUS EPITHELIAL CELL URINE 0-5 /hpf (0-5); WBC, URINE 0-2 /hpf (0-5)
[2017-11-03 21:42] LABS: CHLORIDE 103 MEQ/L (98-107); SODIUM (NA) 136 MEQ/L (136-145)
[2017-11-03 21:45] LABS: CALCIUM 8.5 MG/DL (8.5-10.1)
[2017-11-03 21:46] LABS: ALBUMIN 3.6 GM/DL (3.4-5.0); BICARBONATE 28.2 MEQ/L (21.0-32.0); BLOOD UREA NITROGEN 9 MG/DL (7-18); GLUCOSE,RANDOM 88 MG/DL (74-106); LIPASE 59 U/L (73-393)
[2017-11-03 21:49] LABS: ALT (GPT) 33 U/L (12-78); AST (GOT) 22 U/L (15-37); CREATININE 0.79 MG/DL (0.60-1.30); GLOMERULAR FILTRATION RATE 110 ML/MIN (>89)
[2017-11-03 21:50] LABS: TOTAL BILIRUBIN ADULT 0.5 MG/DL (0.2-1.0); TOTAL PROTEIN 7.3 GM/DL (6.4-8.2)
[2017-11-03 21:51] LABS: ALKALINE PHOSPHATASE 79 U/L (45-117)
[2017-11-03] MEDS ORDERED: SIMETHICONE 125 MG CHEWABLE TAB PO ONE (22:15)
--- NOTE | 2017-11-03 22:15 | RADRPT ---
EXAM DATE/TIME: 11/03/2017 21:45 [facility] COMPARISON: No previous studies available for comparison. INDICATIONS : Left upper quadrant pain today. MEDICAL HISTORY : None. SURGICAL HISTORY : None. ENCOUNTER: Initial ACUITY: 1 day PAIN SCORE: 9/10 LOCATION: Left upper abdomen. FINDINGS: Supine and upright views of the abdomen were performed. The abdominal bowel gas pattern is normal. No air fluid levels are seen. No abnormal masses, calcifications, or organomegaly is seen. The visu alized lower lungs are clear. No evidence of free intraperitoneal gas. The osseous structures are u nremarkable. CONCLUSION: 1. No acute findings. Kwame Spain MD on November 03, 2017 at 22:12 Board Certified Radiologist. This report was verified electronically.
[2017-11-03] MEDS ORDERED: DICY10 PO (22:23)
[2017-11-03] MEDS ORDERED: DICYCLOMINE HCL 20 MG/2 ML VIAL IM ONE (22:30)
[2017-11-03 22:35] VITALS: BP 118/82; PULSE 50; RESP 16; O2SAT 98
== END 2017-11-03 23:21 | disposition home or self-care (01) ==
LOC: PHED 19:17
DX: R10.13 Epigastric pain (principal); R11.0 Nausea; F17.200 Nicotine dependence, unspecified, uncomplicated
CPT/HCPCS: 74019; 80053; 81001; 83690; 85025; 96372; 99284; J0500

== ENCOUNTER 2017-11-23 18:31 | Emergency (ER) | payer MEDICAID ==
[~2017-11-23 18:31] MED LIST changes: +DICY10 PO
[2017-11-23 18:33] VITALS: BP 135/87; PULSE 80; RESP 18; TEMP 98.5; O2SAT 97
--- NOTE | 2017-11-23 19:20 | PD ---
HPI Chief Complaint: Back/ Neck Pain or Injury Time Seen by Provider: 19:17 Travel History International Travel<30 days: No Contact w/Intl Traveler<30days: No Traveled to known affect area: No History of Present Illness HPI 37-year-old male presents for evaluation of lower back pain. He reports that this afternoon he slipped on some stairs and fell down the stairs, sliding the hallway down. Since then he has had lower back pain which is aching and constant and worse with movement. Denies any radicular symptoms, bowel or bladder incontinence, saddle anesthesia, weakness. He has no other complaints at this time. PFSH Past Medical History Arthritis: Yes (DJD L HIP??) Asthma: Yes ( CHILD--GREW OUT OF PER PT) Autoimmune Disease: No Diminished Hearing: No Genitourinary: Yes Headaches: Yes (OCCASSIONAL) Neurologic: Yes Immunizations Current: No Migraines: Yes (OCCASSIONAL) Renal Failure: No Seizures: Yes ( CHILD/NONE SINCE CHILD/TAKES NO MEDS) Past Surgical History Body Medical Devices: PEIRCED L EYEBROW/TONGUE Cardiac Surgery: Yes ( CHILD "WATER ON MY HEART") Ear Surgery: No Endocrine Surgery: No Eye Surgery: No Genitourinary Surgery: No Gynecologic Surgery: No Oral Surgery: No Thoracic Surgery: No Other Surgery: Yes (BACK SURGERY) Social History Alcohol Use: No Tobacco Use: Yes (1 ppd) Substance Use: No Allergies-Medications (Allergen,Severity, Reaction): Coded Allergies: doxycycline (Unverified Allergy, Severe, Anaphylaxis, 09/22/17) sulfamethoxazole (Unverified Allergy, Severe, Anaphylaxis, 09/22/17) trimethoprim (Unverified Allergy, Severe, Anaphylaxis, 09/22/17) *MDRO Multi-Drug Resistant Organism (Verified Adverse Reaction, Unknown, 09/22/17) MRSA (thigh)-01/21/17 Reported Meds & Prescriptions Reported Meds & Active Scripts Active Ibuprofen 800 Mg Tab 800 Mg PO Q6HR PRN Baclofen 10 Mg Tab 10 Mg PO Q8HR 10 Days Lidocaine Patch 12 HR (Lidocaine) 5 % Patch 1 Patch TOPICAL DAILY PRN Remove patch after 12 hours Bentyl (Dicyclomine HCl) 10 Mg Cap 20 Mg PO QID Ultram (Tramadol HCl) 50 Mg Tab 50 Mg PO Q6H PRN Levaquin (Levofloxacin) 750 Mg Tablet 750 Mg PO DAILY 14 Days Review of Systems Except as stated in HPI: all other systems reviewed are Neg Physical Exam Narrative GENERAL: Well-nourished male in no acute distress SKIN: Warm and dry. Surgical scar lower back HEAD: Atraumatic. Normocephalic. EYES: Pupils equal and round. No scleral icterus. No injection or drainage. ENT: No nasal bleeding or discharge. Mucous membranes pink and moist. NECK: Trachea midline. No JVD. CARDIOVASCULAR: Regular rate and rhythm. No murmur appreciated. RESPIRATORY: No accessory muscle use. Clear to auscultation. Breath sounds equal bilaterally. GASTROINTESTINAL: Abdomen soft, non-tender, nondistended. Hepatic and splenic margins not palpable. MUSCULOSKELETAL: No obvious deformities. Tender to palpation lumbar spine. 5 out of 5 muscle strength in lower extremities. NEUROLOGICAL: Awake and alert. No obvious cranial nerve deficits. Motor grossly within normal limits. Normal speech. PSYCHIATRIC: Appropriate mood and affect; insight and judgment normal. Data Data Last Documented VS Vital Signs Date Time Temp Pulse Resp B/P (MAP) Pulse Ox O2 Delivery O2 Flow Rate FiO2 11/23/17 18:33 98.5 80 18 135/87 (103) 97 Orders Orders Spine, Lumbar - Ltd (Ap & Lat) (11/23/17 ) Ibuprofen (Motrin) (11/23/17 19:30) Ed Discharge Order (11/23/17 20:26) [facility] Medical Decision Making Medical Screen Exam Complete: Yes Emergency Medical Condition: Yes Medical Record Reviewed: Yes Differential Diagnosis Lumbar strain, spasm, contusion, fracture Narrative Course 37-year-old male presents with lower back pain after sliding down some stairs. On examination he has focal tenderness to palpation along the lower back with no obvious deformity. X-ray imaging was obtained CONCLUSION: 1. No acute findings. Degenerative disc disease predominantly at the lumbosacral junction. The patient was given a dose of ibuprofen here. He will be discharged with Lidoderm patches, baclofen, ibuprofen prescriptions. Diagnosis Primary Impression: Lumbar strain Additional Instructions: Medication as needed. Take ibuprofen with meals. Do not drive or drink alcohol when taking baclofen as it may cause sedation. Avoid strenuous activity. Follow-up with primary care physician in 2 weeks. Return for any emergent medical conditions. Med/Other Pt SpecificInfo: Prescription(s) given Scripts Ibuprofen (Ibuprofen) 800 Mg Tab 800 MG PO Q6HR Y for PAIN, #40 TAB 0 Refills Prov: Kashif Son MD 11/23/17 Baclofen (Baclofen) 10 Mg Tab 10 MG PO Q8HR for 10 Days, TAB 0 Refills Prov: Kashif Son MD 11/23/17 Lidocaine Patch 12 HR (Lidocaine Patch 12 HR) 5 % Patch 1 PATCH TOPICAL DAILY Y for PAIN, #1 BOX 0 Refills Remove patch after 12 hours Prov: Kashif Son MD 11/23/17 Disposition: 01 DISCHARGE HOME Condition: Stable Giorgio Marie Nov 23, 2017 19:20
[2017-11-23] MEDS ORDERED: IBUPROFEN 800 MG TAB PO ONE (19:30)
--- NOTE | 2017-11-23 20:07 | RADRPT ---
EXAM DATE/TIME: 11/23/2017 19:33 [facility] COMPARISON: No previous studies available for comparison. INDICATIONS : Low back pain, fell MEDICAL HISTORY : None. SURGICAL HISTORY : lumbar laminectomy L5-S1 ENCOUNTER: Initial ACUITY: 1 day PAIN SCORE: 9/10 LOCATION: Lumbar spine FINDINGS: Two view examination was performed. There are five non-rib bearing vertebral bodies. The vertebral bodies are in normal alignment without evidence of subluxation or scoliosis. Moderate to severe degen erative changes at the lumbosacral junction. CONCLUSION: 1. No acute findings. Degenerative disc disease predominantly at the lumbosacral junction. Kwame Spain MD on November 23, 2017 at 20:04 Board Certified Radiologist. This report was verified electronically.
[2017-11-23] MEDS ORDERED: IBUP1TAB7 PO (20:24)
[2017-11-23] MEDS ORDERED: LIDO1PAD52 TOPICAL (20:24)
[2017-11-23] MEDS ORDERED: BACL10TA PO (20:24)
== END 2017-11-23 20:34 | disposition home or self-care (01) ==
LOC: NEPK 18:31
DX: S39.012A Strain of muscle, fascia and tendon of lower back, initial encounter (principal); W10.9XXA Fall (on) (from) unspecified stairs and steps, initial encounter
CPT/HCPCS: 72100; 99283